=== PATIENT | male | born 1975 | race American Indian/Alaskan Native ===

== ENCOUNTER 2022-04-04 11:48 | Emergency (ER) | payer SELFPAY ==
[2022-04-04 14:47] LABS: Hematocrit 45.8 % (35.5-45.6); Hemoglobin 15.8 gm/dl (11.8-15.2); Mean Corpuscular HGB Conc 35 % (32-34); Mean Corpuscular Volume 94 fl (84-94); Platelet Count 146 K/mm3 (140-440); Red Blood Count 4.88 M/mm3 (3.65-5.03); Red Cell Distribution Width 15.8 % (13.2-15.2)
[2022-04-04 15:09] LABS: Albumin 3.9 g/dL (3.9-5); Calcium 9.1 mg/dL (8.4-10.2)
[2022-04-04] MEDS ORDERED: SODIUM CHLORIDE 0.9% 1000 ML 1,000 ML IV ONE (15:38)
--- NOTE | 2022-04-04 15:53 | Event Note ---
ED Screening Note ED Screening Note: [id number] charge nurse aware of labs pt sitting in reassessment- advised not to leave additional labs ordered This initial assessment/diagnostic orders/clinical plan/treatment(s) is/are subject to change based on patients health status, clinical progression and re- assessment by fellow clinical providers in the ED. Further treatment and workup at subsequent clinical providers discretion. Patient/guardian urged not to elope from the ED as their condition may be serious if not clinically assessed and managed. Initial orders include: to main for eval
[2022-04-04] MEDS ORDERED: ALBUTEROL 2.5 MG/3 ML NEBU IH ONE (16:29)
[2022-04-04] MEDS ORDERED: IPRATROPIUM 0.02% NEBU 2.5 ML IH ONE (16:29)
[2022-04-04] MEDS ORDERED: POTASSIUM CHLORIDE ER 20 MEQ TAB PO ONE (16:40)
--- NOTE | 2022-04-04 16:56 | XRay Report ---
CHEST 1 VIEW 04/04/2022 4:32 PM INDICATION / CLINICAL INFORMATION: Dyspnea. COMPARISON: None available. FINDINGS: SUPPORT DEVICES: None. HEART / MEDIASTINUM: No significant abnormality. LUNGS / PLEURA: No significant pulmonary or pleural abnormality. No pneumothorax. ADDITIONAL FINDINGS: No significant additional findings. IMPRESSION: 1. No acute findings. Signer Name: Alcides Croft MD Signed: 04/04/2022 4:52 PM Workstation Name: [id number]
[2022-04-04] MEDS: POTASSIUM CHLORIDE 10 MEQ 10 MEQ/100 ML BAG IV SCH ×2 (17:09→19:02)
[2022-04-04 17:36] LABS: Basophils % (Auto) 0.6 % (0.0-1.8); Eosinophils % (Auto) 0.7 % (0.0-4.3); Hematocrit 44.2 % (35.5-45.6); Hemoglobin 15.2 gm/dl (11.8-15.2); Lymphocytes # (Auto) 1.1 K/mm3 (1.2-5.4); Lymphocytes % (Auto) 28.4 % (13.4-35.0); Mean Corpuscular HGB Conc 34 % (32-34); Mean Corpuscular Volume 93 fl (84-94); Monocytes # (Auto) 0.5 K/mm3 (0.0-0.8); Monocytes % (Auto) 13.6 % (0.0-7.3); Platelet Count 135 K/mm3 (140-440); Red Blood Count 4.75 M/mm3 (3.65-5.03); Red Cell Distribution Width 15.5 % (13.2-15.2)
[2022-04-04 17:52] LABS: Creatine Kinase MB 1.2 ng/mL (0.0-4.0)
[2022-04-04 17:55] LABS: INR 0.88 (0.87-1.13)
--- NOTE | 2022-04-04 18:54 | Cat Scan Report ---
CT ABDOMEN AND PELVIS WITH CONTRAST INDICATION / CLINICAL INFORMATION: Abdominal pain. TECHNIQUE: Axial CT images were obtained through the abdomen and pelvis after Omnipaque 350, 80 cc IV contrast. All CT scans at this location are performed using CT dose reduction for ALARA by means of automated exposure control. COMPARISON: None available. FINDINGS: LOWER CHEST: No significant abnormality. LIVER: No significant abnormality. GALLBLADDER: No significant abnormality. BILE DUCTS: No significant abnormality. PANCREAS: No significant abnormality. SPLEEN: No significant abnormality. ADRENALS: No significant abnormality. RIGHT KIDNEY / URETER: No significant abnormality. LEFT KIDNEY / URETER: No significant abnormality. STOMACH / SMALL BOWEL: Mild thickening of the distal small bowel without significant distention. COLON: Scattered air and fluid without significant wall thickening. APPENDIX: No significant abnormality. PERITONEUM: No free fluid. No free air. No fluid collection. LYMPH NODES: No significant adenopathy. VASCULAR STRUCTURES: No significant abnormality. URINARY BLADDER: No significant abnormality. REPRODUCTIVE ORGANS: No significant abnormality. ADDITIONAL FINDINGS: None. SKELETAL SYSTEM: No significant abnormality. IMPRESSION: Suspected gastroenteritis-type process. Signer Name: Albert Basurto MD Signed: 04/04/2022 6:49 PM Workstation Name: [id number]
[2022-04-04 20:02] VITALS: BP 115/65
--- NOTE | 2022-04-04 20:39 | Emergency Department Report ---
ED General Adult HPI - General Chief complaint: Dyspnea/Respdistress Stated complaint: SOB PUI?: No Time Seen by Provider: 04/04/22 16:23 Source: patient Mode of arrival: Ambulatory Limitations: No Limitations - History of Present Illness Initial comments: Pt reports loss of appetite and shortness of breath x2 days , pt has history of cardiac stents few months ago in [facility], no chets pain , reports nausea and vomitinga dnd iarrhea for the last few days . nof ever no body aches -: Gradual, days(s) Location: abdomen Radiation: non-radiation Consistency: intermittent Improves with: none Worsens with: none Associated Symptoms: nausea/vomiting. denies: denies other symptoms, confusion, chest pain Treatments Prior to Arrival: none - Related Data Allergies Allergy/AdvReac Type Severity Reaction Status Date / Time No Known Allergies Allergy Unverified 04/04/22 12:50 ED Review of Systems ROS: Stated complaint: SOB Other details as noted in HPI Constitutional: denies: chills, fever Eyes: denies: eye pain, eye discharge, vision change ENT: denies: ear pain, throat pain Respiratory: denies: cough, shortness of breath, wheezing Cardiovascular: denies: chest pain, palpitations Endocrine: no symptoms reported Gastrointestinal: denies: abdominal pain, nausea, diarrhea Genitourinary: denies: urgency, dysuria Musculoskeletal: denies: back pain, joint swelling, arthralgia Skin: denies: rash, lesions Neurological: denies: headache, weakness, paresthesias Psychiatric: denies: anxiety, depression Hematological/Lymphatic: denies: easy bleeding, easy bruising ED Past Medical Hx - Past Medical History Hx Hypertension: Yes Hx Diabetes: Yes Additional medical history: cardiac stents ED Physical Exam - General Limitations: No Limitations General appearance: alert, in no apparent distress - Head Head exam: Present: atraumatic, normocephalic - Eye Eye exam: Present: normal appearance - ENT ENT exam: Present: mucous membranes moist - Neck Neck exam: Present: normal inspection - Respiratory Respiratory exam: Present: normal lung sounds bilaterally. Absent: respiratory distress - Cardiovascular Cardiovascular Exam: Present: regular rate, normal rhythm. Absent: systolic murmur, diastolic murmur, rubs, gallop - GI/Abdominal GI/Abdominal exam: Present: soft, normal bowel sounds - Rectal Rectal exam: Present: deferred - Extremities Exam Extremities exam: Present: normal inspection - Back Exam Back exam: Present: normal inspection - Neurological Exam Neurological exam: Present: alert, oriented X3 - Psychiatric Psychiatric exam: Present: normal affect, normal mood - Skin Skin exam: Present: warm, dry, intact, normal color. Absent: rash ED Course Vital Signs 04/04/22 04/04/22 04/04/22 12:50 17:27 17:40 Temperature 98.6 F Pulse Rate 119 H 72 Pulse Rate [ 99 H Bilateral] Respiratory 18 18 18 Rate Respiratory 18 Rate [Bilateral ] Blood Pressure 158/103 150/100 [Left] O2 Sat by Pulse 98 99 99 Oximetry 04/04/22 20:01 Temperature Pulse Rate 72 Pulse Rate [ Bilateral] Respiratory 18 Rate Respiratory Rate [Bilateral ] Blood Pressure 115/65 [Left] O2 Sat by Pulse 99 Oximetry ED Medical Decision Making - Lab Data Result diagrams: 04/04/22 16:50 04/04/22 14:26 - EKG Data -: EKG Interpreted by Al EKG shows normal: sinus rhythm - EKG Data When compared to previous EKG there are: no significant change - Radiology Data Radiology results: report reviewed, image reviewed - Medical Decision Making work up showed hypoakelmia , replaced PO and IV , vss no distress , CT scan shwoed gasteontritis, lipase is elevated but CT negative for pancretaitis no abdominal pain, able to tolerate po , Critical care attestation.: If time is entered above; I have spent that time in minutes in the direct care of this critically ill patient, excluding procedure time. ED Disposition Clinical Impression: Hypokalemia, Acute gastroenteritis Disposition: HOME / SELF CARE / HOMELESS Is pt being admited?: No Does the pt Need Aspirin: No Condition: Stable Instructions: Hypokalemia, Viral Gastroenteritis, Adult, [id number] Referrals: PRIMARY CARE, [Primary Care Provider] - 3-5 Days
--- NOTE | 2022-04-05 14:22 | Electrocardiograph Report ---
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
--- NOTE | 2022-04-08 10:05 | Electrocardiograph Report ---
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
== END 2022-04-04 21:23 | disposition home or self-care (01) ==
LOC: ED 11:48
DX: K52.9 Noninfective gastroenteritis and colitis, unspecified (principal); E87.6 Hypokalemia; E11.9 Type 2 diabetes mellitus without complications; I10 Essential (primary) hypertension
CPT/HCPCS: 36415; 71045; 74177; 80053; 82140; 82550; 82553; 83690; 83735; 84484; 85025; 85027; 85610; 93005; 94640; 96360; 96361; 99284; J3480; J7030; Q9967; 94644